=== PATIENT | female | born 1985 | race Caucasian/White ===

== ENCOUNTER → 2021-06-21 | Outpatient (CLI) | payer OTHER ==
[~2021-06-21] MED LIST: ALBU90OI INH; AZIT250 PO; CETI5 PO; CLIN150 PO; CYCL10 PO; FLUT110OIA IH; HYDACE5 PO; IBUP400 PO; IBUP800 PO; METPRE4DP PO; NAPR500 PO; Naprosyn500 MG PO; OXYACE5T PO; PENVK500 PO; PRED20 PO; RXHYDACE PO; RXTRAM50 PO; TRAM50 PO
[2021-06-23 16:11] LABS: CORONAVIRUS (COVID19) CSH-NRL Negative (Negative)
== END | disposition home or self-care (01) ==
LOC: LAB SHORT 14:50 → LAB 14:50
PROVIDERS: Chiropractor
DX: Z20.822 Contact with and (suspected) exposure to COVID-19 (principal)
CPT/HCPCS: U0003